=== PATIENT | male | born 2000 ===

== ENCOUNTER 2021-12-25 20:16 | Emergency (ER) | payer SELFPAY ==
[2021-12-25 20:20] VITALS: TEMP 99.9
[2021-12-25 20:53] LABS: BASO % 0.6 % (0.0-2.0); EOS # 0.4 K/mm3 (0.0-0.7); EOS % 6.2 % (0.0-4.0); GRAN # 4.6 K/mm3 (1.4-6.5); GRAN % 64.8 % (42.2-75.2); HEMATOCRIT 42.3 % (42.0-52.0); HEMOGLOBIN 14.9 g/dl (13.5-18.0); LYMPH # 1.6 K/mm3 (1.2-3.4); LYMPH % 22.3 % (20.0-51.0); MEAN CELL VOLUME 86 fl (80.0-100.0); MEAN CORPUSCULAR HEMOGLOBIN 30 pg (27-31); MEAN CORPUSCULAR HGB CONC 35 g/dl (33.0-37.0); MEAN PLATELET VOLUME 10.4 fl (7.4-10.4); MONO # 0.4 K/mm3 (0.1-0.6); PLATELET COUNT 213 K/mm3 (130-400); RED BLOOD COUNT 4.93 M/mm3 (4.20-5.60); REDCELL DISTRIBUTION WIDTH-CV 11.8 % (11.5-14.5)
[2021-12-25 21:12] LABS: ALBUMIN 4.5 gm/dL (3.5-5.0); BILIRUBIN,TOTAL 0.4 mg/dL (0.2-1.2); CALCIUM 9.3 mg/dL (8.4-10.2); CREATININE, serum 1.3 mg/dL (0.72-1.25); POTASSIUM 3.5 mmol/L (3.5-4.5); TOTAL PROTEIN 7.6 gm/dL (6.2-8.1)
[2021-12-25 21:18] LABS: TROPONIN-I 0.013 ng/mL (0.00-0.033)
[2021-12-25 21:51] VITALS: BP 131/88; PULSE 79
== END 2021-12-25 22:00 | disposition home or self-care (01) ==
LOC: COL.ER 20:16
PROVIDERS: Nurse Practitioner Primary Care
DX: R53.81 Other malaise (principal); R53.83 Other fatigue; R07.9 Chest pain, unspecified; Z20.822 Contact with and (suspected) exposure to COVID-19; Z28.310 Unvaccinated for COVID-19
CPT/HCPCS: J1885; J2405; J7030